=== PATIENT | male | born 1995 | race Caucasian/White ===

== ENCOUNTER 2016-10-08 16:59 | Emergency (ER) | payer SELFPAY | END 2016-10-08 18:30 | disposition home or self-care (01) | LOC: D.ER 16:59 | DX: R06.00 Dyspnea, unspecified (principal); R11.2 Nausea with vomiting, unspecified; R50.9 Fever, unspecified; R09.89 Other specified symptoms and signs involving the circulatory and respiratory systems; R19.7 Diarrhea, unspecified; F17.200 Nicotine dependence, unspecified, uncomplicated; J45.909 Unspecified asthma, uncomplicated ==